=== PATIENT | female | born 1985 | race Caucasian/White ===

== ENCOUNTER 2019-09-09 00:35 | Inpatient (IN) | payer OTHER ==
[2019-09-09 01:26] LABS: BASO % 0.3 % (0-2.0); EOS % 0.2 % (0-4.5); HEMATOCRIT 38.7 % (32.4-45.2); HEMOGLOBIN 13.1 GM/dL (10.7-15.3); LYMPH % 11.5 % (8-40); MCHC 33.9 g/dl (32.0-36.0); MEAN CELL VOLUME 97.5 fl (80-96); MEAN PLT VOLUME 8.2 fl (7.5-11.1); PLATELET COUNT 187 K/MM3 (134-434); RBC 3.97 M/mm3 (3.60-5.2); RDW 12.7 % (11.6-15.6); WHITE BLOOD COUNT 8.8 K/mm3 (4.0-10.0)
[2019-09-09 01:39] LABS: INR 0.87 (0.83-1.09); PROTHROMBIN TIME (PATIENT) 10.2 SEC (9.7-13.0)
[2019-09-09 01:42] LABS: ACTIVATED PTT 26.5 SECONDS (25.2-36.5)
--- NOTE | 2019-09-09 01:46 | HP ---
Past Medical History - Primary Care Physician PCP:: Sandra Jarquin - Admission Chief Complaint: Labor History of Present Illness: 34 yo ectopicx1 EDC 09/07/EGA 40.2 wk admitted in labor no ROM bleeding or MANJARREZ Limitations to Obtaining History: No Limitations - Past Medical History Pulmonary: Yes: Asthma ...: 6 ...Para: 1 ...Term: 1 ...EDC by Dates: 09/08/19 - Past Surgical History Past Surgical History: Yes: None Hx Myomectomy: No Hx Transabdominal Cerclage: No - Alcohol/Substance Use History of Substance Use: reports: None - Social History Do you think of yourself as: Straight/Heterosexual History of Recent Travel: No Home Medications - Allergies Allergies/Adverse Reactions: Allergies Allergy/AdvReac Type Severity Reaction Status Date / Time diphenhydramine AdvReac Mild Vomiting Verified 09/09/19 01:03 [From Benadryl Allergy] - Home Medications Home Medications: Ambulatory Orders Ibuprofen [Motrin -] 600 mg PO QID #28 tablet 09/09/19 Magnesium 400 mg PO DAILY 09/09/19 Vitamins (Sjr) - 1 tab PO DAILY 09/09/19 Review of Systems - Review of Systems Constitutional: reports: No Symptoms Eyes: reports: No Symptoms HENT: reports: No Symptoms Neck: reports: No Symptoms Cardiovascular: reports: No Symptoms Respiratory: reports: No Symptoms Gastrointestinal: reports: Abdominal Pain Genitourinary: reports: No Symptoms Breasts: reports: No Symptoms Reported Musculoskeletal: reports: No Symptoms Integumentary: reports: No Symptoms Neurological: reports: No Symptoms Endocrine: reports: No Symptoms Hematology/Lymphatic: reports: No Symptoms Psychiatric: reports: No Symptoms Physical Exam - Maternity Constitutional: Yes: Well Nourished - Abdominal Exam/OB Number of Fetuses: Single Presentation: Vertex Contractions: Yes Monitor Mode: External Heart Rate Location: [facility] Category: I Decelerations: None - Vaginal Exam/OB Vaginal Bleediing: No Dilatation (cm): 5 Effacement (%): 100 Amniotic Membrane Status: Intact Presentation: Vertex/Position - Physical Exam Musculoskeletal: Yes: WNL Edema: No Psychiatric: Yes: WNL, Alert, Oriented - Labs Lab Results: CBC, BMP 09/09/19 00:57 Hemorrhage Risk Assessment - Risk Factors Risk Score: 0 Risk Level: Low Risk Problem List - Problems (1) Labor established Problems reviewed: Yes Code(s): EHN4070 - (2) Post-dates Code(s): O48.0 - POST-TERM Qualifiers: Post-term type: 40-42 weeks gestation Qualified Code(s): O48.0 - Post-term Assessment/Plan IUP at 40.2 week labor Plan Anticipate vaginal delivery
[2019-09-09 01:48] VITALS: BMI 21.9
[2019-09-09] MEDS ORDERED: BENZOCAINE 28 GM HEMORRHOIDAL OINTMENT PR PRN (01:51)
[2019-09-09] MEDS ORDERED: BISACODYL 10 MG SUPP.RECT PR PRN (01:51)
[2019-09-09] MEDS ORDERED: WITCH HAZEL 50% (TUCKS) 40 PAD/JAR PAD TP PRN (01:51)
[2019-09-09] MEDS ORDERED: METHYLERGONOVINE MALEATE 0.2 MG/1 ML AMP IM PRN (01:51)
[2019-09-09] MEDS ORDERED: BENZOCAINE 20% 57 GM BOTTLE TP PRN (01:51)
[2019-09-09] MEDS ORDERED: LIDOCAINE HCL 1% PRESERVATIVE FREE - 30ML VIAL ONE (01:52)
[2019-09-09] MEDS ORDERED: FENTANYL/BUPIVACAINE/NS/PF - PCEA - 50 ML DISP.SYRIN EP ONE (01:52)
[2019-09-09] MEDS ORDERED: OXYTOCIN 20 UNITS in 0.9% NS 20 UNIT/1,000 ML INFUS.BAG IV ONE ×2 (01:52→04:37)
[2019-09-09 01:54] LABS: BLOOD UREA NITROGEN 18.7 mg/dL (7-18); CALCIUM 8.3 mg/dL (8.5-10.1); CREATININE 0.5 mg/dL (0.55-1.3); POTASSIUM 4.5 mmol/L (3.5-5.1)
[2019-09-09] MEDS ORDERED: NALOXONE HCL 0.4 MG/ML VIAL IVPUSH PRN (01:57)
[2019-09-09] MEDS ORDERED: FENTANYL/BUPIVACAINE/NS/PF - PCEA - 50 ML DISP.SYRIN EP SCH (02:00)
[2019-09-09] MEDS ORDERED: ELECTROLYTE-148 SOLN 1,000 ML IV SCH (02:00)
[2019-09-09] MEDS ORDERED: LIDO 2%/EPI 1:200000 PRESRVFRE (20 ML SDVIAL) ONE (02:05)
--- NOTE | 2019-09-09 02:44 | PN ---
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
[2019-09-09] MEDS: BUTORPHANOL TARTRATE 1 MG/ML VIAL IVPB ONE ×2 (03:18→03:19)
[2019-09-09] MEDS ORDERED: IBUPROFEN 600 MG TABLET (FP) PO ONE (03:49)
[2019-09-09] MEDS ORDERED: ACETAMINOPHEN 325 MG TABLET (FP) ONE (03:49)
[2019-09-09] MEDS: IBUPROFEN 600 MG TABLET (FP) PO PRN ×4 (04:19→21:12)
[2019-09-09] MEDS: ACETAMINOPHEN 325 MG TABLET (FP) PO PRN ×4 (04:20→21:13)
[2019-09-10] MEDS: IBUPROFEN 600 MG TABLET (FP) PO PRN ×5 (02:28→20:27)
[2019-09-10] MEDS: ACETAMINOPHEN 325 MG TABLET (FP) PO PRN ×5 (02:29→20:28)
[2019-09-10 08:38] LABS: BASO % 0.1 % (0-2.0); EOS % 0.4 % (0-4.5); HEMATOCRIT 31.5 % (32.4-45.2); HEMOGLOBIN 10.8 GM/dL (10.7-15.3); LYMPH % 13.4 % (8-40); MCH 33.3 pg (25.7-33.7); MCHC 34.3 g/dl (32.0-36.0); MEAN CELL VOLUME 97.1 fl (80-96); MEAN PLT VOLUME 7.9 fl (7.5-11.1); NEUT % 78.1 % (42.8-82.8); PLATELET COUNT 143 K/MM3 (134-434); RBC 3.25 M/mm3 (3.60-5.2); RDW 12.4 % (11.6-15.6); WHITE BLOOD COUNT 7.6 K/mm3 (4.0-10.0)
[2019-09-11] MEDS: IBUPROFEN 600 MG TABLET (FP) PO PRN ×2 (01:52→08:34)
[2019-09-11] MEDS: ACETAMINOPHEN 325 MG TABLET (FP) PO PRN ×2 (01:52→08:35)
--- NOTE | 2019-09-11 08:34 | DS ---
Physical Exam-NETWORK SUPPORT ADMINISTRATOR Vital Signs: Vital Signs Temperature 97.8 F 09/10/19 21:15 Pulse Rate 80 09/10/19 21:15 Respiratory Rate 20 09/10/19 21:15 Blood Pressure 101/49 L 09/10/19 21:15 O2 Sat by Pulse Oximetry (%) 100 09/09/19 03:45 Constitutional: Yes: Well Nourished, No Distress Respiratory: Yes: WNL Gastrointestinal: Yes: WNL ....Post : Yes: Uterus firm, Uterus non-tender Breast(s): Yes: WNL Musculoskeletal: Yes: WNL Extremities: Yes: WNL Edema: No Labs: CBC, BMP 09/10/19 07:35 09/09/19 00:57 Delivery - Delivery Vaginal Delivery: No Problems (Shoulders delivered without complications Live male 2nd degree laceration repaired with 2 0 chromic suture) Type of Anesthesia: Local Episiotomy/Laceration: 2nd degree EBL (cc): 250 Delivery, Single - Stages of Labor Date 1st Stage Initiatied: 09/08/19 Time 1st Stage Initiated: 22:30 Date 2nd Stage Initiated: 09/09/19 Time 2nd Stage Initiated: 02:10 Date of Delivery: 09/09/19 Time of Delivery: 02:14 Time Placenta Delivered: 02:20 Placenta: Yes: Spontaneous - 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 You may walk unlimited mando of and climb stairs. You may resume driving the car when you feel safe and comfortable behind the wheel. No sexual activity as instructed. Wound care If you have a bandage, leave it on, and keep dry for 48-72 hours. After that time discard the outer bandage. If they are tapes on the skin under the out of bandage leave them in place. They will peel off in the next 7 to 10 days. Do Not Peel them off. You may shower the day after surgery. If there are tapes present on the skin, you may shower over them. Diet There are no dietary restrictions. Eat healthy, high-fiber foods. Drink 6 to 8 glasses of liquid each day. This will assist in keeping your bowels are regular. Pain management You may take Tylenol or acetaminophen or Ibuprofen (for example, Motrin, Advil etc.) from my pain prescription medication is ordered should be taken as prescribed for moderate to severe pain. Call MD for any of the following: Severe pain not relieved by medication Fever of 101 or higher Excessive bleeding or drainage on dressing Inability to urinate Disposition: HOME - Home Medications Comprehensive Discharge Medication List: Ambulatory Orders Ibuprofen [Motrin -] 600 mg PO QID #28 tablet 09/09/19 Magnesium 400 mg PO DAILY 09/09/19 Vitamins (Sjr) - 1 tab PO DAILY 09/09/19
[2019-09-11 10:14] VITALS: BP 95/62; PULSE 73; TEMP 97.7
== END 2019-09-11 12:58 | disposition home or self-care (01) | DRG 560 ==
LOC: JLDR 00:35 → J3W 04:43
PROVIDERS: ADMIT Obstetrics & Gynecology; ATTEND Obstetrics & Gynecology
PROC: 10E0XZZ Delivery of Products of Conception, External Approach (ICD-10-PCS; principal; 2019-09-09)
PROC: 0KQM0ZZ Repair Perineum Muscle, Open Approach (ICD-10-PCS; 2019-09-09)
DX: O48.0 Post-term pregnancy (principal); O70.1 Second degree perineal laceration during delivery; Z3A.40 40 weeks gestation of pregnancy; Z37.0 Single live birth
CPT/HCPCS: 36415; 36600; 59409; 80048; 82803; 85025; 85610; 85730; 86593; 86850; 86900; 86901

== ENCOUNTER 2023-06-20 22:37 | Emergency (ER) | payer OTHER ==
[2023-06-20 22:44] VITALS: RESP 18; BMI 25.6
[2023-06-21] MEDS ORDERED: BACITRACIN ZINC 15 GM TUBE TOPICAL OINTMENT ONE (00:46)
[2023-06-21 03:04] VITALS: BP 107/65; PULSE 88; TEMP 98.4
== END 2023-06-21 04:29 | disposition home or self-care (01) ==
LOC: JER 22:37
DX: O9A.213 Injury, poisoning and certain other consequences of external causes complicating pregnancy, third trimester (principal); S00.83XA Contusion of other part of head, initial encounter; W01.198A Fall on same level from slipping, tripping and stumbling with subsequent striking against other object, initial encounter; Y93.02 Activity, running
CPT/HCPCS: 76819-TC; 99284-25